=== PATIENT | male | born 1940 | race Two or more races ===

== ENCOUNTER 2017-04-05 13:17 | Inpatient (IN) | payer MEDICAID ==
[~2017-04-05] VITALS: Ht 162.6 cm; Wt 70.8 kg
[2017-04-05] MEDS ORDERED: SODIUM CHLORIDE 0.9% 1,000 ML IV ONE (14:20)
[2017-04-05 14:51] LABS: Basophils # (auto) 0 uL; Basophils % (auto) 0.4 % (0.0-2.0); CONDITION Y; Eosinophils # (auto) 0.5 uL; Eosinophils % (auto) 4.8 % (0.0-7.0); Hematocrit 34.8 % (41.0-53.0); Hemoglobin 11.4 g/dL (13.5-17.5); Lymphocytes # (auto) 2.6 uL; Lymphocytes % (auto) 23.1 % (10.0-50.0); Mean Corpuscular Hgb Conc. 32.7 g/dL (32.0-36.0); Mean Corpuscular Volume 85.5 fL (80.0-100.0); Mean Platelet Volume 8.8 fL (7.4-10.4); Monocytes # (auto) 1.2 uL; Neutrophils # (auto) 6.8 uL; Neutrophils % (auto) 60.7 % (37.0-80.0); Platelet Count (auto) 232 10^3/uL (140-450); White Blood Cell 11.3 10^3/uL (4.4-10.8)
[2017-04-05 15:03] LABS: INR 0.95 (0.9-1.15); Prothrombin Time 10.3 sec (9.37-12.3)
[2017-04-05 15:08] LABS: Albumin 2.9 g/dL (3.4-5.0); Anion Gap 9 (5-15); Aspartate Aminotransferase 16 U/L (15-37); BUN/Creatinine Ratio 10.5; Blood Urea Nitrogen 8 mg/dL (7-18); Calcium 8.8 mg/dL (8.5-10.1); Carbon Dioxide 28 mmol/L (21-32); Chloride 107 mmol/L (98-107); GFR African American 129 mL/min; GFR Non-African American 107 mL/min; Glucose 83 mg/dL (74-106); Potassium 4.3 mmol/L (3.5-5.1); Sodium 144 mmol/L (136-145)
[2017-04-05 15:13] LABS: Alkaline Phosphatase 86 U/L (45-117); Bilirubin, Total 0.3 mg/dL (0.2-1.0); Total Protein 7.2 g/dL (6.4-8.2)
[2017-04-05 15:16] LABS: B-Type Natriuretic Peptide 26.93 pg/mL (0-100)
[2017-04-05 16:06] LABS: Urine Bilirubin Negative (Negative); Urine Blood Negative /uL (Negative); Urine Color Yellow (Yellow); Urine Glucose Normal (Normal); Urine Ketone Negative (Negative); Urine Nitrite Negative (Negative); Urine RBC <1 /hpf (0 - 3); Urine Squamous Epithelial Cell FEW /hpf (<5); Urine Urobilinogen Normal (Negative); Urine pH 6.5 (5.0-8.0)
[2017-04-05] MEDS ORDERED: cefTRIAXone 1GM/50ML D5W 50 ML IV ONE (17:15)
[2017-04-05] MEDS ORDERED: NITROGLYCERIN 0.4 MG SL TAB SL PRN (17:15)
[2017-04-05] MEDS ORDERED: DOCUSATE SOD 100 MG CAP PO PRN (17:15)
[2017-04-05] MEDS ORDERED: TEMAZEPAM 15 MG CAP PO PRN (17:15)
[2017-04-05] MEDS ORDERED: ONDANSETRON HCL 4 MG/2 ML VIAL IV PRN (17:15)
[2017-04-05] MEDS ORDERED: ACETAMINOPHEN 325 MG TAB PO PRN (17:15)
[2017-04-05] MEDS ORDERED: HYDROcodone-ACET 5/325MG TAB PO PRN (17:15)
[2017-04-05] MEDS ORDERED: MORPHINE SULF INJ 2 MG/ML SYRINGE 1ML IV PRN ×2 (17:15)
[2017-04-05] MEDS: ALBUTEROL SULF 2.5 MG/0.5ML(0.5%) NEB SOLN NEB SCH (18:20)
[2017-04-05] MEDS: IPRATROPIUM BROM 0.5 MG/2.5ML INH SOL NEB SCH (18:20)
[2017-04-05 18:22] VITALS: BP 120/76
[2017-04-05] MEDS: BOOST PLUS 8 ounce PO SCH ×2 (18:26→22:32)
[2017-04-05 22:00] VITALS: BP 130/80
[2017-04-05] MEDS: FAMOTIDINE 20 MG TAB PO SCH (22:32)
[2017-04-05] MEDS: SODIUM CHLOR 0.9% PF (SALINE LOCK) 10ML VIAL IV SCH (22:32)
[2017-04-05] MEDS: ASCORBIC ACID 500 MG TAB PO SCH (22:32)
[2017-04-05 23:00] VITALS: BP 130/80
[2017-04-06] MEDS: ALBUTEROL SULF 2.5 MG/0.5ML(0.5%) NEB SOLN NEB SCH ×3 (00:45→14:24)
[2017-04-06] MEDS: IPRATROPIUM BROM 0.5 MG/2.5ML INH SOL NEB SCH ×3 (00:45→14:24)
[2017-04-06 05:00] VITALS: BP 143/81
[2017-04-06] MEDS: SODIUM CHLOR 0.9% PF (SALINE LOCK) 10ML VIAL IV SCH (05:26)
[2017-04-06] MEDS: BOOST PLUS 8 ounce PO SCH ×2 (05:26→12:00)
[2017-04-06 05:51] LABS: Basophils # (auto) 0 uL; Basophils % (auto) 0.3 % (0.0-2.0); CONDITION Y; Eosinophils # (auto) 0.7 uL; Eosinophils % (auto) 5.8 % (0.0-7.0); Hematocrit 32.9 % (41.0-53.0); Hemoglobin 10.9 g/dL (13.5-17.5); Lymphocytes # (auto) 3.2 uL; Lymphocytes % (auto) 27.3 % (10.0-50.0); Mean Corpuscular Hgb Conc. 33.1 g/dL (32.0-36.0); Mean Corpuscular Volume 84.6 fL (80.0-100.0); Mean Platelet Volume 9.2 fL (7.4-10.4); Monocytes # (auto) 1.2 uL; Neutrophils # (auto) 6.6 uL; Neutrophils % (auto) 56.6 % (37.0-80.0); Platelet Count (auto) 201 10^3/uL (140-450); Red Cell Distribution Width 14.8 % (11.6-16.0); White Blood Cell 11.6 10^3/uL (4.4-10.8)
[2017-04-06 06:20] LABS: Albumin 2.7 g/dL (3.4-5.0); BUN/Creatinine Ratio 11.8; Bilirubin, Total 0.3 mg/dL (0.2-1.0); Calcium 8.7 mg/dL (8.5-10.1); Potassium 3.7 mmol/L (3.5-5.1); Total Protein 6.7 g/dL (6.4-8.2)
[2017-04-06 08:00] VITALS: BP 134/77
[2017-04-06] MEDS ORDERED: cefTRIAXone 1GM/50ML D5W 50 ML IV SCH (09:00)
[2017-04-06] MEDS: ASCORBIC ACID 500 MG TAB PO SCH (09:21)
[2017-04-06] MEDS: FAMOTIDINE 20 MG TAB PO SCH (09:21)
[2017-04-06] MEDS ORDERED: ZINC SULFATE 220 MG CAP PO SCH (10:00)
[2017-04-06] MEDS ORDERED: MULTIPLE VITAMIN TAB PO SCH (10:00)
[2017-04-06 12:00] VITALS: BP 115/62
== END 2017-04-06 15:48 | disposition home or self-care (01) | DRG 144 ==
LOC: ER 13:17 → TELE 13:18 → TELE-EAST 22:00
PROVIDERS: ADMIT Internal Medicine; ATTEND Internal Medicine
DX: J20.9 Acute bronchitis, unspecified (principal); E44.0 Moderate protein-calorie malnutrition; R04.2 Hemoptysis; C34.90 Malignant neoplasm of unspecified part of unspecified bronchus or lung; J43.9 Emphysema, unspecified; D63.8 Anemia in other chronic diseases classified elsewhere; F17.210 Nicotine dependence, cigarettes, uncomplicated; J45.909 Unspecified asthma, uncomplicated; R09.1 Pleurisy; Z85.118 Personal history of other malignant neoplasm of bronchus and lung; Z92.21 Personal history of antineoplastic chemotherapy; Z79.899 Other long term (current) drug therapy; Z68.26 Body mass index [BMI] 26.0-26.9, adult
CPT/HCPCS: 36415; 71250; 80053; 81001; 83880; 84484; 85025; 85610; 85730; 87040; 93005; 93306; 94640; 96360; J0696